=== PATIENT | male | born 1970 | race Caucasian/White ===

== ENCOUNTER 2022-12-05 20:46 | Emergency (ER) | payer MEDICAID ==
[~2022-12-05] VITALS: Ht 170.2 cm; Wt 98.0 kg
[2022-12-05 20:53] VITALS: O2SAT 94
[2022-12-05] MEDS ORDERED: SODIUM CHLORIDE 0.9% 1,000 ML IV ONE (21:45)
[2022-12-05 21:51] VITALS: TEMP 97.9
[2022-12-05 22:05] LABS: CHLORIDE 100 mEq/L (98-107); INDEX HEMOLYSI 2 (1-3); INDEX ICTERIC 1 (1-4); INDEX LIPEMIC 1 (1-3); SODIUM 132 mEq/L (136-145)
[2022-12-05 22:09] LABS: BASOPHILS % 0.6 % (0.0-2.0); EOSINOPHILS % 0.2 % (0.0-5.0); HEMATOCRIT. 44.7 % (42.0-52.0); HEMOGLOBIN. 15.6 g/dL (14.0-18.0); LYMPHOCYTES % 18.6 % (20.0-50.0); MEAN CORPUSCULAR HEMOGLOBIN 33.5 pg (28.0-32.0); MEAN CORPUSCULAR VOLUME 95.7 fL (80.0-94.0); MEAN PLATELET VOLUME 6.8 fl (7.4-10.4); MONOCYTES % 6.6 % (2.0-8.0); PLATELET 214 x1000/uL (130-400); RED BLOOD CELL COUNT 4.67 mill/uL (4.7-6.1); RED CELL DISTRIBUTION WIDTH 13.1 % (11.6-14.6); WHITE BLOOD COUNT 6.4 x1000/uL (4.5-11.0)
[2022-12-05 22:15] LABS: ALANINE AMINOTRANSFERASE 171 IU/L (13-61); ALBUMIN 3.8 g/dL (3.4-5.0); ASPARTATE AMINOTRANSFERASE 129 IU/L (15-37); BILIRUBIN TOTAL 1.3 mg/dL (0.1-1.0); CALCIUM 8.8 mg/dL (8.5-10.1); CARBON DIOXIDE 23 mEq/L (21-32); CREATININE 0.6 mg/dL (0.6-1.3); ETHANOL BLOOD < 10 mg/dL (-10); GLUCOSE 183 mg/dL (70-105); PHENYTOIN <0.4 ug/mL ug/mL (10-20); PROTEIN TOTAL 7.5 g/dL (6.0-8.3); UREA NITROGEN BLOOD 3 mg/dL (7-21)
[2022-12-05 22:19] LABS: VALPROIC ACID < 3.0 ug/mL (50-100)
[2022-12-06] MEDS ORDERED: POTASSIUM CHLORIDE 20MEQ/PACKET PO NR (00:15)
[2022-12-06] MEDS ORDERED: POTA-204 MT (00:41)
[2022-12-06 01:23] VITALS: BP 143/74; PULSE 85; RESP 17
== END 2022-12-06 02:01 | disposition home or self-care (01) ==
LOC: ER 20:46
DX: R56.9 Unspecified convulsions (principal); I10 Essential (primary) hypertension; E78.00 Pure hypercholesterolemia, unspecified; E87.6 Hypokalemia; K76.0 Fatty (change of) liver, not elsewhere classified
CPT/HCPCS: 80053; 80320; 80185; 82962; 80165; 85025; 36415; 71045; 70450; 76705; 93005; 99285; J7030; G0480